=== PATIENT | male | born 1965 | race Caucasian/White ===

== ENCOUNTER 2016-07-17 08:15 | Day surgery (SDC) | payer BC ==
[2016-07-14 11:50] VITALS: BMI 32.3
[~2016-07-17 08:15] MED LIST: LACTATED RINGERS 1,000 ML IV SCH
[2016-07-17 08:59] VITALS: RESP 16; TEMP 98
[2016-07-17] MEDS ORDERED: LIDOCAINE 1% 20 ML VIAL (10MG/ML) FOR IV START INTRADERMA ONE (08:59)
[2016-07-17] MEDS ORDERED: PROPOFOL 10 MG/ML 20 ML VIAL IV ONE (09:20)
[2016-07-17] MEDS ORDERED: LIDOCAINE 1% INJ 10MG/ML (20 ML MDV) ONE (09:20)
--- NOTE | 2016-07-17 09:25 | P.GSHP ---
History of Present Illness H&P Date: 07/17/16 Chief Complaint: Colon cancer screening Patient today for colonoscopy. He has not had one previously. No family history of colon cancer. No bowel related complaints. Past Medical History Past Medical History: Hyperlipidemia History of Any Multi-Drug Resistant Organisms: None Reported Past Surgical History: Back Surgery, Heart Catheterization Past Anesthesia/Blood Transfusion Reactions: No Reported Reaction Additional Past Anesthesia/Blood Transfusion Reaction / Comment(s): no hx blood transfusion Past Psychological History: No Psychological Hx Reported Smoking Status: Current some day smoker Past Alcohol Use History: Occasional Additional Past Alcohol Use History / Comment(s): smoke cigar occas, smoked approx 10 yrs Past Drug Use History: None Reported - Past Family History Mother Family Medical History: No Reported History Father Family Medical History: Diabetes Mellitus Additional Family Medical History / Comment(s): heart problems Medications and Allergies Home Medications Medication Instructions Recorded Confirmed Type Rosuvastatin [Crestor] 10 mg PO DAILY 01/27/15 07/17/16 History Aspirin 81 mg PO DAILY 07/14/16 07/14/16 History Allergies Allergy/AdvReac Type Severity Reaction Status Date / Time No Known Allergies Allergy Verified 07/14/16 11:43 Surgical - Exam Vital Signs Temp Pulse Resp BP Pulse Ox 98.0 F 58 L 16 130/79 98 07/17/16 08:56 07/17/16 08:56 07/17/16 08:56 07/17/16 08:56 07/17/16 08:56 Physical exam: General: Well-developed, well-nourished HEENT: Normocephalic, sclerae nonicteric Abdomen: Nontender, nondistended Extremities: No edema Neuro: Alert and oriented Assessment and Plan (1) Colon cancer screening Narrative/Plan: Will proceed with colonoscopy at this time. Status: Acute
--- NOTE | 2016-07-17 09:36 | P.PCN ---
Date of Procedure: 07/17/16 Procedure(s) Performed: PREOPERATIVE DIAGNOSIS: Colon cancer screening POSTOPERATIVE DIAGNOSIS: Normal exam PROCEDURE: Colonoscopy ANESTHESIA: MAC SURGEON: Kevin Finney M.D. SPECIMENS: None ENDOSCOPIC PROCEDURE: The patient was placed on the endoscopy table in the left decubitus position. The Olympus colonoscope was inserted into the anus and passed under direct visualization to the base of the cecum. The appendiceal orifice was visualized. From that point the scope was slowly withdrawn inspecting all surfaces carefully. There were no neoplastic inflammatory or polypoid lesions throughout the cecum, ascending, transverse, descending, sigmoid and rectum. There was no diverticulosis noted. Digital rectal examination was normal. The patient was taken to the recovery room in stable condition per anesthesia guidelines. RECOMMENDATIONS: Increase fiber. Follow-up colonoscopy 10 years.
[2016-07-17 10:09] VITALS: BP 113/69; PULSE 55
== END 2016-07-17 10:16 | disposition home or self-care (01) ==
LOC: ORWHC2ENDO 08:15
PROVIDERS: ATTEND Surgery
DX: Z12.11 Encounter for screening for malignant neoplasm of colon (principal); E78.5 Hyperlipidemia, unspecified; F17.290 Nicotine dependence, other tobacco product, uncomplicated; Z79.82 Long term (current) use of aspirin; Z79.899 Other long term (current) drug therapy
CPT/HCPCS: J2001; J2704; G0121

== ENCOUNTER → 2017-04-26 | Outpatient (CLI) | payer BC ==
--- NOTE | 2017-04-26 07:52 | MR ---
EXAMINATION TYPE: MR knee RT wo con DATE OF EXAM: 04/26/2017 7:08 AM COMPARISON: NONE HISTORY: Pain in right knee TECHNIQUE: Multiplanar, multiecho imaging of the right knee is performed without IV contrast. FINDINGS: There is a small joint effusion. There is no significant chondromalacia. There is abnormal signal in the posterior horn of the medial meniscus. No definite communicating tear is seen. Both the anterior and posterior cruciate ligaments are intact. There is a grade 2 sprain of the medial collateral ligament complex. The lateral collateral ligament complexes are unremarkable. The iliotibial band inserts normally upon Gerdy's tubercle. The popliteus muscle and tendon are normal. Both the quadriceps and patellar tendons are intact. There is mild swelling in the Hoffa fat space. IMPRESSION: 1. MODERATE JOINT EFFUSION. 2. NO SIGNIFICANT CHONDROMALACIA. 3. ABNORMAL SIGNAL WITHIN THE POSTERIOR HORN AND BODY HORN JUNCTION OF THE MEDIAL MENISCUS WITHOUT A DEFINITE COMMUNICATING TEAR.
== END | disposition home or self-care (01) ==
LOC: RADMRIMAIN 06:30
PROVIDERS: ATTEND Orthopaedic Surgery
DX: M25.461 Effusion, right knee (principal); R93.7 Abnormal findings on diagnostic imaging of other parts of musculoskeletal system

== ENCOUNTER → 2019-06-29 | Outpatient (CLI) | payer BC | END | disposition home or self-care (01) | CPT/HCPCS: 99211 ==

== ENCOUNTER → 2019-10-14 | Outpatient (CLI) | payer BC ==
--- NOTE | 2019-10-15 16:13 | MR ---
EXAMINATION TYPE: MR shoulder RT wo con DATE OF EXAM: 10/14/2019 COMPARISON: None HISTORY: Right shoulder pain Multiplanar multiecho imaging of the right shoulder was performed with no contrast. There is shoulder joint effusion. The biceps tendon is intact. The subscapularis tendon is intact. Th ere is extensive abnormal increased signal in the supraspinatus tendon with thickening over the super ior aspect of the humeral head. There is no retraction. There is subacromial joint space narrowing. T here is some spurring at the AC joint. There is no evidence of a fracture. There is slight inferior d isplacement of the supraspinatus tendon due to spurring at the AC joint. I see no focal bone destruct ion. The glenoid bob appear intact. There are small degenerative cysts in the glenoid. IMPRESSION: Shoulder joint effusion with large full-thickness rotator cuff tear of the supraspinatus tendon. AC j oint spur formation and subacromial impingement.
== END | disposition home or self-care (01) ==
LOC: RADMRIMAIN 11:01
PROVIDERS: ATTEND Orthopaedic Surgery
DX: M75.121 Complete rotator cuff tear or rupture of right shoulder, not specified as traumatic (principal); M25.411 Effusion, right shoulder

== ENCOUNTER → 2020-08-01 | Outpatient (CLI) | payer BC ==
--- NOTE | 2020-08-01 22:10 | SFUN ---
SLEEP CENTER FOLLOW UP NOTE DATE OF SERVICE: 08/01/2020 This 54-year-old gentleman has been followed in the sleep center for possible obstructive sleep apnea-hypopnea syndrome. I saw the patient more than one year ago. At that time, because of his symptoms of loud snoring, awakenings from sleep and sleepiness, I recommended proceeding with a home sleep apnea test, but the patient was not able to do it because of the situation with COVID at that time and that did not let us do it. At the present time he continues to snore, wakes up from sleep multiple times, feels sleepiness during the day. [place] Sleepiness Scale today is 12. MEDICATIONS: None. PHYSICAL EXAMINATION: GENERAL: A pleasant patient in no distress. VITAL SIGNS: BP 131/74, HR 76, RR 18, height 6 feet 1 inch, weight 267.4. He weighs 5 pounds more than during his last visit. BMI 35.2/ HEENT: PERRLA, EOMI. Evaluation of oropharynx showed tongue protrudes midline. NECK: Supple. No JVD. Thyroid is not palpable. Neck measures 16-1/2 inches in circumference. LUNGS: Clear to percussion and to auscultation. Good air exchange. No wheezing or rhonchi. HEART: S1, S2 regular. No murmurs, gallops or rubs. ABDOMEN: Slightly obese. EXTREMITIES: No clubbing or cyanosis. OPTICAL INSTRUMENT ASSEMBLY SUPERVISOR: Awake, alert, and oriented X3. Cranial nerves 2 to 7 intact. There is no fasciculation or atrophy. noted. No focal deficits observed. IMPRESSION: 1. Loud snoring, multiple awakenings from sleep, extremely low position of soft palate, sleepiness, [place] Sleepiness Scale today is 12; obstructive sleep apnea- hypopnea syndrome. 2. Obesity. 3. Status post back surgery. PLAN: 1. Home sleep apnea test for evaluation of patient's breathing during sleep. 2. Watching and losing weight. 3. Sleep hygiene with regular time in bed for 7-1/2 to 8 hours. 4. No driving if feeling any sleepiness. 5. Following plan after reviewing results of home sleep apnea test. Thank you very much for allowing me to participate in the management of your patient. Sincerely, Joe Solomon MD, PhD, FAASM Diplomat of [employer] Short Order Cook of [facility] [place] URSULA / JO ANN: [id number] /

== ENCOUNTER → 2020-10-16 | Outpatient (CLI) | payer BC ==
--- NOTE | 2020-10-16 20:45 | SFUN ---
SLEEP CENTER FOLLOW UP NOTE DATE OF SERVICE: 10/16/2020 54-year-old gentleman has been followed in Sleep Center for treatment for obstructive sleep apnea-hypopnea syndrome. Recently the patient home sleep apnea test and showed the patient has sleep apnea and I discussed results of the sleep studies with patient in detail. After the sleep study, he was started on treatment with AutoPAP and today is his first visit after he started therapy. The patient is able to use CPAP equipment every night, but feels dryness while using his CPAP equipment and he continues to feel some sleepiness during the day. [place] Sleepiness Scale today increased to 12. I checked the CPAP unit. Range of the pressure 5-20, average pressure 9.1 cm of water. Usage is 29/30 nights for more than 4 hours, which is good compliance. Average amount of hours of usage 6.8 hours per night. Leak is 11 L/minute. Apnea-hypopnea index only 0.5, which is perfect. MEDICATIONS: None. PHYSICAL EXAMINATION: GENERAL: Patient in no distress. BP 123/81, HR 67, RR 16, weight 264.8, temperature 97.8. HEENT: Oropharynx extremely low position of soft palate, Mallampati 4. NECK: Supple, no JVD. Thyroid is not palpable. LUNGS: Clear to percussion and to auscultation. Good air exchange. No wheezing or rhonchi. HEART: S1, S2 regular. No murmurs, gallops, or rubs. ABDOMEN: Soft and nontender. Bowel sounds are present. No organomegaly appreciated. EXTREMITIES: No clubbing or cyanosis. TRIPLE VALVE MECHANIC: Awake, alert, and oriented X3. Cranial nerves 2 to 7 intact. There is no fasciculation or atrophy. noted. No focal deficits observed. IMPRESSION: 1. Obstructive sleep apnea-hypopnea syndrome. Patient demonstrated good compliance with treatment benefitting from treatment. 2. The patient still continues to feel some sleepiness during the day. 3. Some dryness while using CPAP equipment. 4. Obesity. BMI 35. 5. Status post back surgery. PLAN: 1. I discussed with the patient position of CPAP unit during the sleep. 2. I discussed with the patient necessity to remove all water and make everything dry in the CPAP tube and water chamber in the morning which patient does not do at the present time. 3. The patient should increase time in bed for at least 7-1/2 hours per night. 4. If he will continue to feel sleepiness during the day, we may consider MSLT. 5. Precautions related to driving. No driving if feeling sleepiness. 6. I will maintain all necessary prescription for PAP supplies including mask, tube, filters. 7. Watching weight. 8. Follow-up visit in 6 months or earlier if patient has any problems. Thank you very much for allowing me to participate in management of your patient. I spent with the patient and documentation more than 30 minutes. Sincerely, Joe Solomon MD, PhD, FAASM Diplomat of [employer] Farm Operations Manager of [facility] [place] MMODL / IJN: [id number] /
== END ==
LOC: SLEEP 13:45
PROVIDERS: ATTEND Internal Medicine
DX: G47.33 Obstructive sleep apnea (adult) (pediatric) (principal); E66.9 Obesity, unspecified; Z68.35 Body mass index [BMI] 35.0-35.9, adult; Z99.81 Dependence on supplemental oxygen; Z98.890 Other specified postprocedural states